=== PATIENT | female | born 1950 | race African-American/Black ===

== ENCOUNTER 2021-11-25 18:35 | Emergency (ER) | payer OTHER ==
[~2021-11-25] VITALS: Ht 165.1 cm; Wt 110.0 kg
[2021-11-25 19:52] LABS: BASOPHILS % 0.3 % (0.0-2.0); EOSINOPHILS % 2.2 % (0.0-5.0); HEMATOCRIT. 37.1 % (36.0-48.0); HEMOGLOBIN. 12.1 g/dL (12.0-16.0); LYMPHOCYTES % 38.4 % (20.0-50.0); MEAN CORPUSCULAR HEMOGLOBIN 27.8 pg (28.0-32.0); MEAN CORPUSCULAR VOLUME 85.4 fL (81.0-99.0); MEAN PLATELET VOLUME 7.6 fl (7.4-10.4); NEUTROPHILS % 54.1 % (40.0-76.0); PLATELET 298 x1000/uL (130-400); RED BLOOD CELL COUNT 4.35 mill/uL (4.2-5.4); RED CELL DISTRIBUTION WIDTH 17.8 % (11.6-14.6)
[2021-11-25] MEDS ORDERED: MORPHINE SULFATE 4 MG/ML CPJ (NOT FOR IM USE) IV ONE (20:00)
[2021-11-25 20:03] LABS: CHLORIDE 110 mEq/L (98-107)
[2021-11-25 21:54] VITALS: BP 166/88
== END 2021-11-25 22:04 | disposition short-term general hospital (02) ==
LOC: ER 18:35
DX: R62.7 Adult failure to thrive (principal); I10 Essential (primary) hypertension; E11.9 Type 2 diabetes mellitus without complications; Z20.822 Contact with and (suspected) exposure to COVID-19; Z68.41 Body mass index [BMI] 40.0-44.9, adult; Z86.73 Personal history of transient ischemic attack (TIA), and cerebral infarction without residual deficits
CPT/HCPCS: 36415; 80053; 85025; 87426; 96374; 99285; J2270